=== PATIENT | male | born 1980 | race Caucasian/White ===

== ENCOUNTER 2018-08-23 21:13 | Emergency (ER) | payer OTHER, SELFPAY ==
[2018-08-23 21:21] VITALS: BP 140/80; PULSE 80; RESP 18; TEMP 36.6; O2SAT 98
--- NOTE | 2018-08-23 21:46 | W.ED.GENAD ---
Discharge Plan Disposition Patient Disposition: HOME Condition: Fair Discharge Details Chief Complaint: Orthopedic Clinical Impression: Great toe pain, Gout attack Primary Care Provider: Mariluz,Local ED Provider: Kristy Grace Home Meds and New Rx's Prescriptions: New prednisone 10 mg tablet 10 mg PO DAILY Qty: 16 RF: 0 Discharge Instructions Instructions: Prednisone (By mouth), Gout (ED) Additional Instructions: Encourage hydration. Tylenol and ibuprofen as needed for discomfort. Try to elevate extremity. Heat or ice to affected area. Please take steroids as prescribed. Side effects as discussed. If you develop fever/chills, spreading of the redness, increased pain or other new/worsening symptoms please seek care urgently once again. Otherwise, please follow-up with primary care within the next 48 hours for reevaluation. Please call them tomorrow to schedule follow-up appointment on Tuesday. Discharge Data Discharge Date/Time-TO BE ENTERED AT DEPARTURE: 08/23/18 23:45 Medical Decision Making Patient a 38-year-old male presents today with chief complaint of left great toe pain. He reports the pain began approximately 2 days ago. States that this morning great increase in discomfort. Also no erythema and swelling. States that the swelling, got about the entirety of the foot but is maximal over the IP joint of the great toe. He denies any trauma. Patient is a runner did not suffer any injury there is aware of the running. Is not been able to run since the onset of this discomfort. Father has a history of gout. Patient reports that his diet is generally quite healthy. Does admit to some alcohol consumption over the weekend but not in excess. No fevers or chills. No previous issue with his foot. DIP joint of the left great toe is erythematous, swollen. Is not warm to the touch. No evidence of trauma or break in the skin. Plan to obtain x-ray to screen for any bony pathology. Concern for possible initial gout flare versus infection. Will obtain laboratory evaluation XR reviewed by radiologist. Advised no acute fracture dislocation. Mild to moderate degenerative changes at the first MTP and IP joints. No leukocytosis. Uric acid is normal. CRP is elevated. Given the location of the patient's history, primary concern for gout flare despite the normal uric acid. Also discussed the possibility of a septic joint cannot see any source of infection. We will treat for gout flare. Reviewed the literature, patient will be placed on prednisone. Disucssed side effects, given first dose here. We will have him follow-up with primary care in the next 48 hours. He will call tomorrow to set up appointment. He was given strict return precautions, in particular signs symptoms of infection when to seek care urgently once again. All questions and concerns were addressed and he is in agreement this plan. HPI General Mode of arrival: ambulatory. Date/Time Provider Initiated Documentation: 08/23/18 21:45. Limitations to Documentation: no limitations. Information obtained by: patient. History of Present Illness 38 year old M presents to the emergency department with the chief complaint of left foot pain, described as moderate, with intensity rated at 7. Quality is described as burning, and is localized to the left and lower extremity. Patient reports no radiation. Patient started experiencing this day(s) (2) and it has been constant. Immobilization improves symptom(s), Movement worsens symptoms . Patient notes rash (erythema at base of great toe); denies fever/chills. Patient did receive the following treatments prior to arrival, NSAID (400mg Ibuprofen 4 hours prior to arrival) Related Data Home Medications Medication Instructions Recorded Confirmed prednisone 10 mg PO DAILY #16 tab 08/23/18 Previous Rx's Medication Instructions Recorded prednisone 10 mg PO DAILY #16 tab 08/23/18 Allergies Allergy/AdvReac Type Severity Reaction Status Date / Time No Known Allergies Allergy Unverified 08/23/18 21:23 General Stated Complaint: Orthopedic CR: 4 Review of Systems Constitutional Reports as per HPI, Denies chills, Denies fever(s), Denies headache(s) and Denies weakness ENT Denies headache(s) Cardiovascular Reports as per HPI Respiratory Reports as per HPI and Denies cough Musculoskeletal Reports as per HPI and Denies tingling Integumentary/Breasts Reports as per HPI, Reports erythema and Denies wounds Neurologic Reports as per HPI, Denies headache(s), Denies tingling, Denies paresthesias and Denies weakness [facility] Social History Smoking/Tobacco Use Status: Never Alcohol Intake: current Alcohol Intake frequency: 0-2 drinks per day Substance use type: does not use Do you feel safe at home: Yes Do you feel safe in your relationship?: Yes Exam Const General: cooperative, healthy appearing, comfortable, no acute distress, well developed and well groomed Nutritional Appearance: average body habitus and well nourished Orientation: alert and awake Resp Effort & Inspection: normal respiratory effort, able to speak in complete sentences and no respiratory distress Cardio Rate: regular rate Rhythm: regular rhythm Skin General skin exam: erythema (erythema and swelling IP joint left great toe) Neuro General: alert and awake Cognition: normal cognition Speech: speech normal Gait: normal gait Motor: muscle tone normal throughout Sensory Exam: no sensory deficits noted Extrem General: normal capillary refill, no pedal edema, no calf tenderness and abnormal gait (antalgic gait) Left lower extremity: normal capillary refill, lower leg Details: normal to inspection and no edema, ankle Details: normal to inspection, no edema and normal ROM; no tenderness and foot Details: normal capillary refill, tenderness Location: of the great toe (erythema and swelling) Location: at the IP joint, toes with normal ROM (pain with ROM of great toe), vascular exam Details: dorsalis pedis pulse present and posterior tibial pulse present and tendon exam Details: active flexion normal and active extension normal; no unusual warmth; joint enlargement noted Psych Appearance: grossly normal and well kempt Mental Status: mental status grossly normal Speech and Movement: speech and movement normal Course Vital Signs Temperature 36.6 C 08/23/18 21:21 Pulse 80 08/23/18 21:21 Respiratory Rate 18 08/23/18 21:21 Blood Pressure 140/80 08/23/18 21:21 Pulse Oximetry 98 08/23/18 21:21 Temperature 36.6 C 08/23/18 21:21 Temperature Source Temporal Artery Scan 08/23/18 21:21 Pulse 80 08/23/18 21:21 Respiratory Rate 18 08/23/18 21:21 Blood Pressure 140/80 08/23/18 21:21 Pulse Oximetry 98 08/23/18 21:21 Oxygen Delivery Method Room Air 08/23/18 21:21 Oxygen Flow Rate 0 08/23/18 21:21 Pain Level 7 08/23/18 21:21
--- NOTE | 2018-08-23 22:15 | ED.GENADUL_ITS ---
Discharge Plan Disposition Patient Disposition: HOME Condition: Fair Discharge Details Chief Complaint: Orthopedic Clinical Impression: Great toe pain, Gout attack Primary Care Provider: Mariluz,Local ED Provider: Kristy Grace Home Meds and New Rx's Prescriptions: New prednisone 10 mg tablet 10 mg PO DAILY Qty: 16 RF: 0 Discharge Instructions Instructions: Prednisone (By mouth), Gout (ED) Additional Instructions: Encourage hydration. Tylenol and ibuprofen as needed for discomfort. Try to elevate extremity. Heat or ice to affected area. Please take steroids as prescribed. Side effects as discussed. If you develop fever/chills, spreading of the redness, increased pain or other new/worsening symptoms please seek care urgently once again. Otherwise, please follow-up with primary care within the next 48 hours for reevaluation. Please call them tomorrow to schedule follow-up appointment on Tuesday. Discharge Data Discharge Date/Time-TO BE ENTERED AT DEPARTURE: 08/23/18 23:45 Medical Decision Making Patient a 38-year-old male presents today with chief complaint of left great toe pain. He reports the pain began approximately 2 days ago. States that this morning great increase in discomfort. Also no erythema and swelling. States that the swelling, got about the entirety of the foot but is maximal over the IP joint of the great toe. He denies any trauma. Patient is a runner did not suffer any injury there is aware of the running. Is not been able to run since the onset of this discomfort. Father has a history of gout. Patient reports that his diet is generally quite healthy. Does admit to some alcohol consumption over the weekend but not in excess. No fevers or chills. No pr evious issue with his foot. DIP joint of the left great toe is erythematous, swollen. Is not warm to the touch. No evidence of trauma or break in the skin. Plan to obtain x-ray to screen for any bony pathology. Concern for possible initial gout flare versus infection. Will obtain laboratory evaluation XR reviewed by radiologist. Advised no acute fracture dislocation. Mild to moderate degenerative changes at the first MTP and IP joints. No leukocytosis. Uric acid is normal. CRP is elevated. Given the location of the patient's history, primary concern for gout flare despite the normal uric acid. Also discussed the possibility of a septic joint cannot see any source of infection. We will treat for gout flare. Reviewed the literature, patient will be placed on prednisone. Disucssed side effects, given first dose here. We will have him follow-up with primary care in the next 48 hours. He will call tomorrow to set up appointment. He was given strict return precautions, in particular signs symptoms of infection when to seek care urgently once again. All questions and concerns were addressed and he is in agreement this plan. HPI General Mode of arrival: ambulatory . Date/Time Provider Initiated Documentation: 08/23/18 21:45 . Limitations to Documentation: no limitations . Information obtained by: patient . History of Present Illness 38 year old M presents to the emergency department with the chief complaint of left foot pain, described as moderate, with intensity rated at 7. Quality is described as burning, and is localized to the left and lower extremity. Patient reports no radiation. Patient started experiencing this day(s) (2) and it has been constant. Immobilization improves symptom(s), Movement worsens symptoms . Patient notes rash (erythema at base of great toe); denies fever/chills. Patient did receive the following treatments prior to arrival, NSAID (400mg Ibuprofen 4 hours prior to arrival) Related Data Home Medications Medication Instructions Recorded Confirmed prednisone 10 mg PO DAILY #16 tab 08/23/18 Previous Rx's Medication Instructions Recorded prednisone 10 mg PO DAILY #16 tab 08/23/18 Allergies Allergy/AdvReac Type Severity Reaction Status Date / Time No Known Allergies Allergy Unverified 08/23/18 21:23 General Stated Complaint: Orthopedic CR: 4 Review of Systems Constitutional Reports as per HPI, Denies chills, Denies fever(s), Denies headache(s) and Denies weakness ENT Denies headache(s) Cardiovascular Reports as per HPI Respiratory Reports as per HPI and Denies cough Musculoskeletal Reports as per HPI and Denies tingling Integumentary/Breasts Reports as per HPI, Reports erythema and Denies wounds Neurologic Reports as per HPI, Denies headache(s), Denies tingling, Denies paresthesias and Denies weakness [facility] Social History Smoking/Tobacco Use Status: Never Alcohol Intake: current Alcohol Intake frequency: 0-2 drinks per day Substance use type: does not use Do you feel safe at home: Yes Do you feel safe in your relationship?: Yes Exam Const General: cooperative, healthy appearing, comfortable, no acute distress, well developed and well groomed Nutritional Appearance: average body habitus and well nourished Orientation: alert and awake Resp Effort & Inspection: normal respiratory effort, able to speak in complete sentences and no respiratory distress Cardio Rate: regular rate Rhythm: regular rhythm Skin General skin exam: erythema (erythema and swelling IP joint left great toe) Neuro General: alert and awake Cognition: normal cognition Speech: speech normal Gait: normal gait Motor: muscle tone normal throughout Sensory Exam: no sensory deficits noted Extrem General: normal capillary refill, no pedal edema, no calf tenderness and abnormal gait (antalgic gait) Left lower extremity: normal capillary refill, lower leg Details: normal to inspection and no edema, ankle Details: normal to inspection, no edema and normal ROM; no tenderness and foot Details: normal capillary refill, tenderness Location: of the great toe (erythema and swelling) Location: at the IP joint, toes with normal ROM (pain with ROM of great toe), vascular exam Details: dorsalis pedis pulse present and posterior tibial pulse present and tendon exam Details: active flexion normal and active extension normal; no unusual warmth; joint enlargement noted Psych Appearance: grossly normal and well kempt Mental Status: mental status grossly normal Speech and Movement: speech and movement normal Course Vital Signs Temperature 36.6 C 08/23/18 21:21 Pulse 80 08/23/18 21:21 Respiratory Rate 18 08/23/18 21:21 Blood Pressure 140/80 08/23/18 21:21 Pulse Oximetry 98 08/23/18 21:21 Temperature 36.6 C 08/23/18 21:21 Temperature Source Temporal Artery Scan 08/23/18 21:21 Pulse 80 08/23/18 21:21 Respiratory Rate 18 08/23/18 21:21 Blood Pressure 140/80 08/23/18 21:21 Pulse Oximetry 98 08/23/18 21:21 Oxygen Delivery Method Room Air 08/23/18 21:21 Oxygen Flow Rate 0 08/23/18 21:21 Pain Level 7 08/23/18 21:21
[2018-08-23] MEDS: Ketorolac 30 MG/ML VIAL IM (22:23)
[2018-08-23 22:26] LABS: Abs Immature Grans 0.02 k/cumm (0.0-0.09); Absolute Basophil Count 0.01 k/cumm (0.0-0.2); Absolute Eosinophil Count 0.14 k/cumm (0.0-0.7); Absolute Lymphocyte Count 2.38 k/cumm (1.2-3.4); Absolute Monocyte Count 1.36 k/cumm (0.11-0.7); Absolute Neutrophil Count 5.78 k/cumm (1.2-6.7); Basophils % 0.1; Eosinophils % 1.4; HCT 44.7 % (40.0-50.0); HGB 15.2 g/dL (13.5-17.5); Immature Grans % 0.2; Lymphocytes % 24.6; Mean Corpuscular Hemoglobin 30.3 pg (27.0-33.0); Mean Platelet Volume 10.7 fL (8.0-11.0); Neutrophils % 59.7; Platelet Count 169 x1000/uL (130-400); RBC 5.02 m/cumm (4.50-6.00); RBC Distribution Width 12.1 % (11.8-14.1); White Blood Cell Count 9.69 k/cumm (4.4-10.8)
--- NOTE | 2018-08-23 22:39 | DI.RAD_ITS ---
SYMPTOM/DIAGNOSIS: PAIN, SWELLING GREAT TOE LEFT FOOT: No previous exams for comparison. No acute fracture or dislocation. Mild marginal osteophyte formation with degenerative joint space narrowing of the left first interphalangeal and MTP joints. There is subchondral sclerosis with focal subchondral lucencies of the left first MTP joint, likely degenerative subchondral cystic change. There is multipartite os peroneum. There is spurring of the dorsal mid foot with possible suggestion of pseudoarticulation, possibly representing fibrous versus cartilaginous coalition. There is posterior calcaneal enthesopathy. IMPRESSION: No acute fracture or dislocation. Mild to moderate degenerative changes of the left first MTP and interphalangeal joints.
[2018-08-23 22:50] LABS: Anion Gap 6.2 mmol/L (3-11); BUN 14 mg/dL (7-18); C-Reactive Protein 0.61 mg/dL (0.0-0.3); CO2 31.8 mmol/L (21.0-32.0); CREATININE 0.98 mg/dL (0.70-1.30); Chloride 104 mmol/L (98-107); Glucose 80 mg/dL (70-100); Sodium 142 mmol/L (136-145); Uric Acid 6.3 mg/dL (3.5-7.2)
--- NOTE | 2018-08-23 23:01 | DI.VRAD_ITS ---
EXAM: XR Left Foot Complete EXAM DATE/TIME: 08/23/2018 10:09 PM CLINICAL HISTORY: 38 years old, male; Toes; Left; Patient HX: Pain and swelling max great toe TECHNIQUE: Imaging protocol: XR Left foot. Views: 3 or more views. COMPARISON: No relevant prior studies available. FINDINGS: Bones/joints: No acute fracture or dislocation. Mild marginal osteophyte formation with degenerative joint space narrowing of the left first interphalangeal and MTP joints. There is subchondral sclerosis with focal subchondral lucencies of the left first MTP joint, likely degenerative subchondral cystic change. There is multipartite os peroneum. There is spurring of the dorsal mid foot with possible suggestion of pseudoarticulation, possibly representing fibrous versus cartilaginous coalition. There is posterior calcaneal enthesopathy. Soft tissues: No focal abnormality. IMPRESSION: 1. No acute fracture or dislocation. 2. Mild to moderate degenerative changes of the left first MTP and interphalangeal joints. Dictated and Authenticated by: Bryan Liriano MD. Ordering:RANDY Wagner MD
[2018-08-23 23:39] LABS: ESR 9 MM/HR (0-15)
[2018-08-23] MEDS: predniSONE 20 MG TAB 40 MG PO (23:39)
== END 2018-08-23 23:45 | disposition home or self-care (01) ==
PROVIDERS: Emergency Provider Physician Assistant
DX: M79.675 Pain in left toe(s) (principal); M10.072 Idiopathic gout, left ankle and foot
CPT/HCPCS: 36415; 80048; 85652; 96372; 99284; 73630; 84550; 85025; 86140; J1885; J7512

== ENCOUNTER 2019-03-09 00:47 | Outpatient (CLI) | payer OTHER, SELFPAY ==
--- NOTE | 2019-03-09 13:26 | DI.US_ITS ---
EXAM: US SCROTUM CLINICAL HISTORY: TESTICULAR PAIN LT, N50.812 TECHNIQUE: Ultrasound performed using standard protocol. COMPARISON: No exams were available for comparison FINDINGS: The right testicle measures 4.5 x 2.6 x 3.5 centimeters. There are few tiny echogenic foci seen with in the testicle. There is normal blood flow to the testicle. No evidence of an intra testicular mas s is seen. There is a small hydrocele on the right. The right epididymis is unremarkable. The left testicle measures 4.3 x 2.4 x 2.8 centimeters. There are few tiny echogenic foci within the testicle. There is normal blood flow to the testicle. No intra testicular mass is seen. There is a small left hydrocele. There is a 0.7 centimeter epididymal head cyst. There is a 0.2 centimeter s crotal pleural lateral to the testicle. There is a small left varicocele IMPRESSION: 1. Echogenic nodule in the scrotum lateral to the left testicle. The findings most suggestive of a s crotal pleural. 2. Bilateral microlithiasis. No evidence of an intra testicular mass. 3. Small bilateral hydroceles and left varicocele.
== END 2019-03-09 01:07 ==
PROVIDERS: Visit Provider Nurse Practitioner
DX: N50.812 Left testicular pain (principal); N43.2 Other hydrocele; I86.1 Scrotal varices; N50.89 Other specified disorders of the male genital organs; E29.8 Other testicular dysfunction
CPT/HCPCS: 76870

== ENCOUNTER 2021-04-02 18:21 | Outpatient (REF) | payer OTHER, SELFPAY ==
[2021-04-02 16:00] LABS: ALT 39 U/L (16-63); AST 21 U/L (15-37); Albumin 4.2 g/dL (3.4-5.0); Alkaline Phosphatase 86 U/L (46-116); Anion Gap 7.5 mmol/L (3-11); BUN 15 mg/dL (7-18); Bilirubin, Total 0.6 mg/dL (0.2-1.0); CO2 31.5 mmol/L (21.0-32.0); Calcium 9.4 mg/dL (8.5-10.1); Calculated LDL 147 mg/dL (<100); Chloride 101 mmol/L (98-107); Cholesterol 227 mg/dL (<200); Glucose 105 mg/dL (74-106); HDL Cholesterol 68 mg/dL (40-60); Sodium 140 mmol/L (136-145); Total Protein 7.5 g/dL (6.4-8.2); Triglyceride 60 mg/dL (<150)
== END 2021-04-02 18:22 | disposition home or self-care (01) ==
LOC: NCHCN 18:21
PROVIDERS: Visit Provider Nurse Practitioner
DX: R00.2 Palpitations (principal)
CPT/HCPCS: 80053; 80061

== ENCOUNTER 2021-04-06 04:45 | Outpatient (RCR) | payer OTHER, SELFPAY ==
--- NOTE | 2021-04-06 08:00 | HOLTER_ITS ---
APPROVED REPORT Conclusion This is a 48-hour Holter monitor ordered for palpitations Predominant rhythm was sinus with an average heart rate of 74. Minimum was 54, maximum 132 There were rare atrial and ventricular ectopic beats There was no atrial fibrillation, no high-grade AV block, no pauses greater than 3 seconds Patient symptoms corresponded to sinus rhythm
== END 2021-04-27 23:59 | disposition home or self-care (01) ==
LOC: RT 04:45
PROVIDERS: Visit Provider Nurse Practitioner
DX: R00.2 Palpitations (principal)
CPT/HCPCS: 93225; 93226

== ENCOUNTER 2022-11-19 09:50 | Outpatient (CLI) | payer OTHER, SELFPAY ==
[2022-11-19 10:26] LABS: Hemoglobin A1C 5.3 % (<5.7)
[2022-11-19 10:36] LABS: ALT 34 U/L (16-63); AST 17 U/L (15-37); Alkaline Phosphatase 84 U/L (46-116); Anion Gap 5.3 mmol/L (3-11); BUN 10 mg/dL (7-18); Bilirubin, Total 0.5 mg/dL (0.2-1.0); CO2 30.7 mmol/L (21.0-32.0); Calcium 9.3 mg/dL (8.5-10.1); Calculated LDL 146 mg/dL (<100); Chloride 104 mmol/L (98-107); Cholesterol 208 mg/dL (<200); Estimated GFR 95.77 (mL/min/1.73m2); Glucose 102 mg/dL (74-106); HDL Cholesterol 55 mg/dL (40-60); Potassium 4.8 mmol/L (3.5-5.1); Sodium 140 mmol/L (136-145); Total Protein 7.4 g/dL (6.4-8.2); Triglyceride 36 mg/dL (<150)
[2022-11-19 14:21] LABS: Uric Acid 7.4 mg/dL (3.5-7.2)
== END 2022-11-19 09:51 | disposition home or self-care (01) ==
LOC: LBO 09:53
PROVIDERS: Visit Provider Nurse Practitioner
DX: E78.00 Pure hypercholesterolemia, unspecified (principal); M79.671 Pain in right foot; F41.8 Other specified anxiety disorders; Z13.1 Encounter for screening for diabetes mellitus; Z83.3 Family history of diabetes mellitus; R79.89 Other specified abnormal findings of blood chemistry
CPT/HCPCS: 36415; 80053; 80061; 83036; 84550